=== PATIENT | male | born 1985 | race African-American/Black ===

== ENCOUNTER 2021-08-13 12:44 | Emergency (ER) | payer MEDICAID, OTHER ==
--- NOTE | 2021-08-13 13:04 | NUR ---
CALLED PT TO TRIAGE AREA, NO ANSWER.
--- NOTE | 2021-08-13 13:27 | NUR ---
PT LEFT WITHOUT BEEN TRIAGED.
== END 2021-08-13 13:52 | disposition left against medical advice (07) ==
LOC: ER 12:44
DX: Z53.21 Procedure and treatment not carried out due to patient leaving prior to being seen by health care provider (principal)